=== PATIENT | male | born 1975 | race Two or more races ===

== ENCOUNTER 2025-07-06 07:44 | Day surgery (SDC) | payer BC ==
[~2025-07-06] VITALS: Ht 185.4 cm; Wt 170.1 kg
[~2025-07-06 07:44] MED LIST: NIFE1TAB31 PO
[2025-07-06] MEDS ORDERED: ONDANSETRON HCL 4 MG/2 ML VIAL IV ONE (07:45)
[2025-07-06] MEDS ORDERED: PROPOFOL 10 MG/ML 20 ML IV ONE (09:14)
[2025-07-06] MEDS ORDERED: MIDAZOLAM HCL 2MG/2ML 2ml VIAL (1mg/ml) ONE (09:14)
--- NOTE | 2025-07-06 09:19 | DVHHP2 ---
GI H&P Pre-Op Assessment Date: 07/06/25 Chief complaint: colon cancer screening HPI: per clinic note Past medical history: per clinic note Past surgical history: per clinic note Family history: per clinic note Physical exam: General: NAD, AAOX3 HEENT: PERRL, no scleral icterus, normal hearing, gums without lesions or bleeding, oropharynx clear without erythema or exudate. Neck: Supple without enlargement of the thyroid, or lymphadenopathy. Chest: Normal size and shape, no tenderness, lung prajapati clear to auscultation and percussion, nonlabored breathing. Heart: RRR, no murmur Abdomen: non-distended, no tenderness to palpation, +BS, no hepatosplenomegaly Extremities: no edema Neurological: CN II-XII intact, sensation intact in all extremities, 5+ strength in all extremities Skin: No rashes, No jaundice Assessment: - colon cancer screening Plan: - Colonoscopy - Risks (bleeding, infection, perforation, reaction to sedation medications and cardiopulmonary arrest) and benefit of the procedure were explained to patient. Patient agrees to undergo the procedure. SARIKA KLEIN MD Jul 06, 2025 09:19
[2025-07-06 09:45] VITALS: TEMP 97
--- NOTE | 2025-07-06 09:48 | DVHOP2 ---
Operative Report DATE OF OPERATION: 07/06/25 PROCEDURE: Colonoscopy. PREOPERATIVE INDICATION: The patient is a 49 -year-old male undergoing colonoscopy for colon cancer screening. POSTOPERATIVE DIAGNOSES: 1. Two sigmoid colon polyps (4 mm, 6 mm) that was removed with hot and cold snare. They were retrieved. 2. Mild diverticulosis in left colon. 3. Anal papillae at the anus. PROCEDURE PERFORMED BY: Ryan Payton M.D. SCOPE: Olympus videocolonoscope. ASA CLASS: 3 PREOPERATIVE MEDICATIONS: MAC with Dr Barbour PROCEDURE IN DETAIL: After obtaining an informed consent, the patient was plac ed on left lateral decubitus position. He was then sedated with the above medications. A rectal examination was performed that was normal. The colonoscope was then passed through the anus into the rectosigmoid and through the descending, transverse, and ascending colon up to the cecum with visualization of the appendiceal orifice, base of the cecum and the ileocecal valve. Two sigmoid colon polyps (4 mm, 6 mm) that was removed with hot and cold snare. They were retrieved. There was mild diverticulosis in left colon. There was an anal papillae at the anus. The colonoscope was then withdrawn. The patient tolerated the procedure well without difficulty. WITHDRAWAL TIME: 8 minutes QUALITY OF THE PREP: [place] Bowel Prep score: 6 COMPLICATIONS : None SPECIMENS: Colon polyps DISPOSITION: D/C to home PLAN: 1. Repeat colonoscopy base on biopsy result RYAN PAYTON MD Jul 06, 2025 09:48
--- NOTE | 2025-07-06 09:48 | DVHDS2 ---
Physician Discharge Progress N Final Diagnosis: Colon polyps, diverticulosis, internal hemorrhoids Operations or Procedures: Operations or Procedures Colonoscopy with hot and cold snare polypectomy. Condition on Discharge: Good Disposition: Home Discharge Instructions: Diet: Regular Activity: No Restrictions, As Tolerated Medications: Resume previous home medications Follow Up Care: Discharge Statement: "Patient was advised to return to the ER or call 911 if any headaches, dizziness, shortness of breath, chest pain, abdominal pain, bleeding, fevers, or worsening of medical condition. Patient was counseled about treatment plan, medications, possible side effects, patientverbalized understanding. All questions were answered to the best of my ability. This discharge took greater then 30 minutes in planning, reviewing documentation, counseling the patient, and discussing with other team members." SARIKA KLEIN MD Jul 06, 2025 09:48
[2025-07-06 10:15] VITALS: BP 124/80; PULSE 65; RESP 19; O2SAT 95
== END 2025-07-06 10:30 | disposition home or self-care (01) ==
LOC: GI 07:44
PROVIDERS: ATTEND Internal Medicine Gastroenterology
DX: Z12.11 Encounter for screening for malignant neoplasm of colon (principal); K63.5 Polyp of colon; K57.30 Diverticulosis of large intestine without perforation or abscess without bleeding; K64.8 Other hemorrhoids; K62.89 Other specified diseases of anus and rectum; I10 Essential (primary) hypertension; J45.909 Unspecified asthma, uncomplicated; L40.50 Arthropathic psoriasis, unspecified; E66.9 Obesity, unspecified; Z68.42 Body mass index [BMI] 45.0-49.9, adult; Z79.899 Other long term (current) drug therapy; Z98.890 Other specified postprocedural states; Z88.5 Allergy status to narcotic agent
CPT/HCPCS: 45385; 88305; J2250; J2405; J2704; J7030